=== PATIENT | female | born 1960 | race Caucasian/White ===

== ENCOUNTER 2020-02-13 08:03 | Day surgery (SDC) | payer MEDICAID, SELFPAY ==
[~2020-02-13] VITALS: Ht 160 cm; Wt 58.5 kg
[2020-02-13] MEDS ORDERED: IOPAMIDOL 50 ML VIAL IV ONE (08:04)
[2020-02-13] MEDS ORDERED: methylPREDNISolone ACETATE 40 MG/ML IM ONE (08:04)
[2020-02-13] MEDS ORDERED: BUPIVACAINE /PF 0.25% 30 ML VIAL INJ ONE (08:04)
[2020-02-13] MEDS ORDERED: LIDOCAINE 1% 10 MG/ML, 20 ML MDV INJ ONE (08:04)
[2020-02-13] MEDS ORDERED: DIPHENHYDRAMINE INJ 50 MG/ML VIAL ONE (09:02)
[2020-02-13] MEDS ORDERED: MIDAZOLAM HCL 5 MG/5 ML VIAL ONE (09:02)
[2020-02-13 14:12] VITALS: BP_SYST 165
== END 2020-02-13 11:15 | disposition home or self-care (01) ==
LOC: SDS 08:03 → SMU 08:04 → SDS 11:15
PROVIDERS: ATTEND Internal Medicine
DX: M51.16 Intervertebral disc disorders with radiculopathy, lumbar region (principal); I10 Essential (primary) hypertension; E11.9 Type 2 diabetes mellitus without complications; E78.5 Hyperlipidemia, unspecified; G89.4 Chronic pain syndrome; Z20.828 Contact with and (suspected) exposure to other viral communicable diseases
CPT/HCPCS: 62323; J1030; J2001; J2250; J3490; J7120; Q9967; U0003; 76000; J1200